=== PATIENT | male | born 1945 | race Caucasian/White ===

== ENCOUNTER 2018-03-30 01:35 | Emergency (ER) | payer MEDICARE, SELFPAY ==
[2018-03-30 01:51] VITALS: BP 127/75; PULSE 66; RESP 15; TEMP 37.3; O2SAT 96; BMI 30.1
--- NOTE | 2018-03-30 02:19 | DI.RAD.S_ITS ---
PROCEDURE: XR CHEST 1V INDICATIONS: cough TECHNIQUE: One view of the chest was acquired. COMPARISON: None. FINDINGS: Surgical changes and devices: Sternotomy wires and CABG clips Lungs and pleura: Lungs are clear. No pleural effusions or pneumothorax. Mediastinum: Mediastinal contours appear normal. Heart size is normal. Bones and chest wall: No suspicious bony lesions. Overlying soft tissues appear unremarkable. IMPRESSION: No acute disease Dictated by: Vincenzo Alva M.D. on 03/30/2018 at 8:07 Approved by: Vincenzo Alva M.D. on 03/30/2018 at 8:08
[2018-03-30] MEDS: ALBUTEROL/IPRATROPIUM 3 ML AMPUL INH (02:27)
[2018-03-30 02:29] VITALS: PULSE 63; RESP 18; O2SAT 94
[2018-03-30 02:52] LABS: Add Manual Diff / Slide Review NO; Basophils Absolute Auto 0 /uL (0-100); Basophils Percent Auto 0.5 % (0-2); Eosinophils Absolute Auto 300 /uL (0-450); Eosinophils Percent Auto 5.1 % (2-4); Hematocrit 45.5 % (41-53); Hemoglobin 15.4 g/dL (13.5-17.5); Lymphocytes Absolute Auto 500 /uL (1100-4500); Mean Corpuscular HGB Conc 33.8 % (30-36); Mean Corpuscular Hemoglobin 30.2 PG (26-34); Mean Corpuscular Volume 89.6 fL (80-100); Monocytes Absolute Auto 1100 /uL (0-900); Monocytes Percent Auto 16.4 % (3-14); Neutrophils Absolute Auto 4600 /uL (1500-7000); Platelet Count 124 X10^3/uL (150-400); Red Blood Cell Count 5.08 X10^6/uL (4.5-5.9); Red Cell Distribution Width 13.6 % (11.6-14.8); White Blood Cell Count 6.6 X10^3/uL (4.5-11.0)
[2018-03-30 03:00] LABS: INR 1.1 (0.9-1.3); Prothrombin Time 12.9 SECONDS (10.1-12.7)
[2018-03-30 03:03] LABS: PTT Partial Thromboplastin Tim 28 SECONDS (26.4-36.2)
[2018-03-30 03:05] LABS: Lactate (Lactic Acid) 1.4 mmol/L (0.7-2.1)
[2018-03-30 03:06] LABS: Alanine Aminotransferase 72 IU/L (21-72); Albumin 4.3 g/dL (3.5-5.0); Albumin Globulin Ratio 1.5 (1.0-2.8); Alkaline Phosphatase 45 U/L (38-126); Aspartate Aminotransferase 54 IU/L (17-59); Blood Urea Nitrogen 26 mg/dL (9-20); Calcium 8.9 mg/dL (8.4-10.2); Carbon Dioxide 24 mmol/L (22-32); Chloride 100 mmol/L (98-107); Creatine Kinase 180 U/L (55-170); Estimated Glomerular Filt Rate > 60.0 mL/min (>60); Globulin 2.8 g/dL (1.7-4.1); Glucose 133 mg/dL (80-110); HEMOLYSIS 19 (0-50); Magnesium 2.1 mg/dL (1.6-2.3); Sodium 137 mmol/L (137-145); Total Protein 7.1 g/dL (6.3-8.2)
[2018-03-30 03:08] LABS: Potassium 5.4 mmol/L (3.4-5.1)
--- NOTE | 2018-03-30 03:13 | ED.DIZZY ---
HPI - Dizziness General Chief Complaint: Dizziness Stated Complaint: Stood up got dizzy fell and hit head EMS sent Time Seen by Provider: 03/30/18 02:06 Source: patient and family Mode of arrival: ambulatory Limitations: no limitations History of Present Illness HPI Narrative: Patient is a 72-year-old male presenting after a near syncopal episode. He says he has been sick the last couple days with upper respiratory like symptoms had a nonproductive cough. No real shortness of breath or chest pain. He has had yesterday was actually worst he was resting lot. Today he felt better when now in did air ins. However this evening he had quite a coughing fit. He stood up he was a little dizzy and bumped his head on a door jam. There was no loss consciousness. He does take aspirin daily for coronary artery disease. He did have some bleeding but it does seem to be controlled. No focal deficits. He now is feeling much better. MD complaint: dizziness and near syncope Related Data Allergies Allergy/AdvReac Type Severity Reaction Status Date / Time No Known Drug Allergies Allergy Verified 03/30/18 01:51 Review of Systems Review of Systems ROS Unobtainable: All systems reviewed & are unremarkable except as noted in HPI and below Constitutional Denies chills, Denies fever(s), Denies lethargy, Denies snoring and Denies weakness Eyes Denies change in vision, Denies eye discharge, Denies irritation and Denies loss of vision Cardiovascular Denies chest pain, Denies irregular heart rhythm, Denies lightheadedness, Denies palpitations, Denies dyspnea, Denies dyspnea on exertion and Denies orthopnea Respiratory Denies change in phlegm color, Denies chest congestion, Reports cough, Denies hemoptysis, Denies excessive phlegm production, Denies pain on inspiration, Denies pain with cough, Denies dyspnea, Denies dyspnea on exertion, Denies snoring, Denies stridor and Denies wheezing Gastrointestinal Gastrointestinal: Denies abdominal pain, Denies change in bowel habits, Denies diarrhea, Denies nausea and Denies vomiting Genitourinary Denies hematuria, Denies flank pain, Denies urinary incontinence and Denies urinary urgency Musculoskeletal Denies back pain, Denies muscle weakness, Denies numbness and Denies tingling Integumentary/Breasts Denies pruritus, Denies erythema, Denies rash and Denies wounds Neurologic Denies loss of vision, Denies numbness, Denies tingling and Denies weakness Endocrine Denies palpitations Allergic/Immunologic Denies wheezing PFSH Medical History Coronary artery disease (Acute) Surgical History Hx of CABG (Acute) Social History Smoking Status: Never smoker alcohol intake: never substance use type: does not use Social History Smoking Status: Never smoker alcohol intake: never substance use type: does not use Exam Initial Vital Signs Initial Vital Signs: Vital Signs Temperature 99.2 F 03/30/18 01:51 Pulse Rate 66 03/30/18 01:51 Respiratory Rate 15 03/30/18 01:51 Blood Pressure 127/75 03/30/18 01:51 Pulse Oximetry 96 03/30/18 01:51 GENERAL: Alert well-appearing elderly gentleman no acute distress HEENT: Head 1 cm superficial laceration left temporal area bleeding control NECK: No vertebral tenderness no step-offs nontender paraspinal muscles full range of motion CARDIOVASCULAR: Regular rate and rhythm without murmurs, rubs or gallops. RESPIRATORY: Breath sounds equal bilaterally, no wheezes rales or rhonchi. ABDOMEN: Soft, nontender. Normoactive bowel sounds all 4 quadrants. No guarding or rebound. EXTREMITIES: Normal range of motion, no clubbing or edema. Neurovascularly intact NEUROLOGICAL: Alert and oriented x4.Normal gait and speech. Cranial nerves II through XII grossly intact. Clinical Nurse Educator strength equal bilaterally SKIN: Warm, dry, no laceration, no petechiae, no rashes or lesions. Course Orders Ordered: ED Orders 03/30/18 01:56 EKG-12 Lead Stat 03/30/18 02:19 Consult to Respiratory Therapy Evaluate & Treat XR chest 1V Stat 03/30/18 02:35 B Type Natriuretic Peptide Stat Complete Blood Count AUTO DIFF Stat Comprehensive Metabolic Panel Stat Lactate (Lactic Acid) Stat Magnesium Stat Partial Thromboplastin Time Stat Procalcitonin Stat Prothrombin Time INR Stat Troponin & CK Cardiac Panel Stat Discontinued Medications Albuterol/Ipratropium (Duoneb) 3 ml INH NOW ONE Stop: 03/30/18 02:19 Last Admin: 03/30/18 02:27 Dose: 3 ml Vital Signs - 8 hr 03/30/18 01:51 03/30/18 02:29 03/30/18 03:39 Temperature 99.2 F 98.2 F Pulse Rate 66 63 69 Respiratory Rate 15 18 18 Blood Pressure 127/75 121/70 Pulse Oximetry 96 94 94 MDM - Dizziness Lab Data Attestation: I reviewed the patient's lab results. Result diagrams: 03/30/18 02:35 03/30/18 02:35 Lab Results 03/30/18 03/30/18 03/30/18 Range/Units 02:35 02:35 02:35 WBC 6.6 (4.5-11.0) X10^3/uL RBC 5.08 (4.5-5.9) X10^6/uL Hgb 15.4 (13.5-17.5) g/dL Hct 45.5 (41-53) % MCV 89.6 (80-100) fL MCH 30.2 (26-34) PG MCHC 33.8 (30-36) % RDW 13.6 (11.6-14.8) % Plt Count 124 L (150-400) X10^3/uL Neut % (Auto) 70.0 (50-75) % Lymph % (Auto) 8.0 L (25-40) % Duchesne % (Auto) 16.4 H (3-14) % Eos % (Auto) 5.1 H (2-4) % Baso % (Auto) 0.5 (0-2) % Neut # (Auto) 4600 (2982-4742) /uL Lymph # (Auto) 500 L (2323-5975) /uL Duchesne # (Auto) 1100 H (0-900) /uL Eos # (Auto) 300 (0-450) /uL Baso # (Auto) 0 (0-100) /uL PT 12.9 H (10.1-12.7) SECONDS INR 1.1 (0.9-1.3) APTT 28 (26.4-36.2) SECONDS Sodium 137 (137-145) mmol/L Potassium 5.4 H (3.4-5.1) mmol/L Chloride 100 (98-107) mmol/L Carbon Dioxide 24 (22-32) mmol/L BUN 26 H (9-20) mg/dL Creatinine 1.00 (0.66-1.25) mg/dL Estimated GFR > 60.0 (>60) mL/min BUN/Creatinine Ratio 26.0 H (6-22) Glucose 133 H (80-110) mg/dL Lactate (0.7-2.1) mmol/L Calcium 8.9 (8.4-10.2) mg/dL Magnesium 2.1 (1.6-2.3) mg/dL Total Bilirubin 1.0 (0.2-1.3) mg/dL AST 54 (17-59) IU/L ALT 72 (21-72) IU/L Alkaline Phosphatase 45 (38-126) U/L Total Creatine Kinase 180 H (55-170) U/L CK-MB (CK-2) 0.94 (<2.37) ng/mL CK-MB (CK-2) Rel Index 0.5 L (1.5-5.0) % Troponin I < 0.012 (0.01-0.034) ng/mL B-Natriuretic Peptide < 100 (<100) Total Protein 7.1 (6.3-8.2) g/dL Albumin 4.3 (3.5-5.0) g/dL Globulin 2.8 (1.7-4.1) g/dL Albumin/Globulin Ratio 1.5 (1.0-2.8) Procalcitonin (<0.5) ng/mL 03/30/18 03/30/18 Range/Units 02:35 02:35 WBC (4.5-11.0) X10^3/uL RBC (4.5-5.9) X10^6/uL Hgb (13.5-17.5) g/dL Hct (41-53) % MCV (80-100) fL MCH (26-34) PG MCHC (30-36) % RDW (11.6-14.8) % Plt Count (150-400) X10^3/uL Neut % (Auto) (50-75) % Lymph % (Auto) (25-40) % Duchesne % (Auto) (3-14) % Eos % (Auto) (2-4) % Baso % (Auto) (0-2) % Neut # (Auto) (0948-5693) /uL Lymph # (Auto) (6188-5260) /uL Duchesne # (Auto) (0-900) /uL Eos # (Auto) (0-450) /uL Baso # (Auto) (0-100) /uL PT (10.1-12.7) SECONDS INR (0.9-1.3) APTT (26.4-36.2) SECONDS Sodium (137-145) mmol/L Potassium (3.4-5.1) mmol/L Chloride (98-107) mmol/L Carbon Dioxide (22-32) mmol/L BUN (9-20) mg/dL Creatinine (0.66-1.25) mg/dL Estimated GFR (>60) mL/min BUN/Creatinine Ratio (6-22) Glucose (80-110) mg/dL Lactate 1.4 (0.7-2.1) mmol/L Calcium (8.4-10.2) mg/dL Magnesium (1.6-2.3) mg/dL Total Bilirubin (0.2-1.3) mg/dL AST (17-59) IU/L ALT (21-72) IU/L Alkaline Phosphatase (38-126) U/L Total Creatine Kinase (55-170) U/L CK-MB (CK-2) (<2.37) ng/mL CK-MB (CK-2) Rel Index (1.5-5.0) % Troponin I (0.01-0.034) ng/mL B-Natriuretic Peptide (<100) Total Protein (6.3-8.2) g/dL Albumin (3.5-5.0) g/dL Globulin (1.7-4.1) g/dL Albumin/Globulin Ratio (1.0-2.8) Procalcitonin 0.14 (<0.5) ng/mL Imaging Data Chest x-ray: Attestation: I personally reviewed and interpreted this imaging study as follows: ECG Data Attestation: I personally reviewed and interpreted this ECG as follows: Prior ECG tracings: available for review Interpretation: Normal sinus rhythm rate [address] changes or T-wave inversions his MN interval to 17 similar to previous EKG MDM Narrative Medical decision making narrative: Patient's dizziness is likely related to coughing episode. He did receive a DuoNeb here in the ED he did notice much change. His blood work reassuring no pneumonia on x-ray. Patient feels better ready and able to go home. Discharge Plan Departure Patient Disposition: Home Clinical Impression: Bronchitis, Near syncope Laceration of head Qualifiers: Encounter type: initial encounter Location of open wound of head: scalp Foreign body presence: without foreign body Qualified Code(s): S01.01XA - Laceration without foreign body of scalp, initial encounter Discharge Date/Time: 03/30/18 03:39 Interventions: ED Discharge Assessment Last Done: 03/30/18 03:39 Instructions: Fainting, Acute Bronchitis Activity Restrictions/Additional Instructions: *You have been diagnosed with bronchitis, fainting episode, head laceration *What to do: Likely have bronchitis no indication for antibiotics at this time. Fainting episode is likely some coughing spell from bronchitis. The keep head laceration clean and dry with soap and water anticipate healing with a problem. *Continue to take medications as directed *Follow up with your primary care provider in 2-3 days *Return to ER if you should have increased chest pain, shortness of breath, passing out, redness, pus or swelling from laceration or any new, worsening or concerning symptoms Referrals: Azael Rosario MD [Primary Care Provider] -
[2018-03-30 03:15] LABS: B Type Natriuretic Peptide < 100 (<100)
[2018-03-30 03:21] LABS: CKMB % Relative Index 0.5 % (1.5-5.0); Creatine Kinase MB 0.94 ng/mL (<2.37); Procalcitonin 0.14 ng/mL (<0.5); Troponin I < 0.012 ng/mL (0.01-0.034)
[2018-03-30 03:39] VITALS: BP 121/70; PULSE 69; RESP 18; TEMP 36.8; O2SAT 94
== END 2018-03-30 03:39 | disposition home or self-care (01) ==
PROVIDERS: Emergency Provider Emergency Medicine; PCP Internal Medicine
DX: S01.01XA Laceration without foreign body of scalp, initial encounter (principal); W22.8XXA Striking against or struck by other objects, initial encounter
CPT/HCPCS: 36591; 71045; 80053; 82550; 82553; 83605; 83735; 83880; 84145; 84484; 85025; 85610; 85730; 93005; 94640; 99283; 99285

== ENCOUNTER → 2018-04-09 10:30 | Outpatient (CLI) | payer MEDICARE, SELFPAY ==
--- NOTE | 2018-04-09 | DI.US.S_ITS ---
PROCEDURE: US ABD AORTA ANEURYSM SCREEN INDICATIONS: SCREENING TECHNIQUE: Real time scanning was performed of the aorta and iliac arteries, with image documentation. COMPARISON: None. FINDINGS: Aorta: Proximal aortic is not seen, secondary to overlying bowel gas. Mid-aorta measures 1.9 cm. Distal aortic diameter is 1.7 cm. Iliac arteries: Right common iliac artery measures 1 cm. Left common iliac artery measures 1.2 cm. IMPRESSION: Negative for aneurysm. Dictated by: Sam Perez M.D. on 04/09/2018 at 10:51 Approved by: Sam Perez M.D. on 04/09/2018 at 10:52
== END ==
PROVIDERS: PCP Internal Medicine; Visit Provider Internal Medicine
DX: Z13.6 Encounter for screening for cardiovascular disorders (principal)
CPT/HCPCS: 76706

== ENCOUNTER → 2018-06-25 09:47 | Outpatient (CLI) | payer MEDICARE, SELFPAY ==
[2018-06-25 10:25] LABS: Add Manual Diff / Slide Review NO; Basophils Absolute Auto 100 /uL (0-100); Basophils Percent Auto 0.7 % (0-2); Eosinophils Absolute Auto 300 /uL (0-450); Eosinophils Percent Auto 3.3 % (2-4); Hematocrit 46.2 % (41-53); Hemoglobin 15.3 g/dL (13.5-17.5); Lymphocytes Absolute Auto 1500 /uL (1100-4500); Lymphocytes Percent Auto 19.9 % (25-40); Mean Corpuscular HGB Conc 33.1 % (30-36); Mean Corpuscular Hemoglobin 29.7 PG (26-34); Mean Corpuscular Volume 89.8 fL (80-100); Monocytes Absolute Auto 700 /uL (0-900); Monocytes Percent Auto 9.2 % (3-14); Neutrophils Absolute Auto 5100 /uL (1500-7000); Neutrophils Percent Auto 66.9 % (50-75); Platelet Count 195 X10^3/uL (150-400); Red Blood Cell Count 5.15 X10^6/uL (4.5-5.9); White Blood Cell Count 7.6 X10^3/uL (4.5-11.0)
[2018-06-25 10:38] LABS: Alanine Aminotransferase 53 IU/L (21-72); Albumin 4.1 g/dL (3.5-5.0); Albumin Globulin Ratio 1.5 (1.0-2.8); Alkaline Phosphatase 51 U/L (38-126); Aspartate Aminotransferase 40 IU/L (17-59); Bilirubin Total 1.1 mg/dL (0.2-1.3); Blood Urea Nitrogen 20 mg/dL (9-20); Calcium 9.4 mg/dL (8.4-10.2); Carbon Dioxide 24 mmol/L (22-32); Chloride 105 mmol/L (98-107); Cholesterol 116 mg/dL (140-199); Estimated Glomerular Filt Rate > 60.0 mL/min (>60); Globulin 2.7 g/dL (1.7-4.1); Glucose 115 mg/dL (80-110); HDL Cholesterol 52 mg/dL (40-60); HEMOLYSIS 16 (0-50); LDL Cholesterol Calculated 47 mg/dL (<100); Potassium 4.5 mmol/L (3.4-5.1); Sodium 138 mmol/L (137-145); Total Protein 6.8 g/dL (6.3-8.2); Triglycerides 83 mg/dL (35-150)
[2018-07-04 10:00] LABS: PSA Post Prostatectomy <0.02 ng/mL
== END ==
PROVIDERS: PCP Internal Medicine; Visit Provider Internal Medicine
DX: I10 Essential (primary) hypertension (principal); I25.10 Atherosclerotic heart disease of native coronary artery without angina pectoris; Z85.46 Personal history of malignant neoplasm of prostate
CPT/HCPCS: 36415; 80053; 80061; 84153; 85025

== ENCOUNTER → 2019-07-08 07:13 | Outpatient (CLI) | payer MEDICARE, SELFPAY ==
[2019-07-08 08:52] LABS: Alanine Aminotransferase 74 IU/L (<50); Albumin 4.1 g/dL (3.5-5.0); Albumin Globulin Ratio 1.5 (1.0-2.8); Alkaline Phosphatase 58 U/L (38-126); Aspartate Aminotransferase 53 IU/L (17-59); BUN Creatinine Ratio 18.9 (6-22); Bilirubin Total 1.5 mg/dL (0.2-1.3); Blood Urea Nitrogen 17 mg/dL (9-20); Calcium 9.7 mg/dL (8.4-10.2); Carbon Dioxide 27 mmol/L (22-32); Chloride 101 mmol/L (98-107); Cholesterol 114 mg/dL (140-199); Estimated Glomerular Filt Rate > 60.0 mL/min (>60); Globulin 2.8 g/dL (1.7-4.1); Glucose 124 mg/dL (80-110); HDL Cholesterol 52 mg/dL (40-60); HEMOLYSIS 20 (0-50); LDL Cholesterol Calculated 41 mg/dL (<100); Potassium 4.9 mmol/L (3.4-5.1); Sodium 136 mmol/L (137-145); Total Protein 6.9 g/dL (6.3-8.2); Triglycerides 103 mg/dL (35-150)
[2019-07-08 23:30] LABS: PSA Ultrasensitive <0.014 ng/mL (0.000-4.000)
== END ==
PROVIDERS: PCP Internal Medicine; Referring Provider Internal Medicine; Visit Provider Internal Medicine
DX: E78.2 Mixed hyperlipidemia (principal); I25.10 Atherosclerotic heart disease of native coronary artery without angina pectoris; I10 Essential (primary) hypertension; R73.09 Other abnormal glucose
CPT/HCPCS: 36415; 80053; 80061; 84153

== ENCOUNTER → 2019-10-22 07:20 | Outpatient (CLI) | payer MEDICARE, SELFPAY ==
[2019-10-22 08:51] LABS: Alanine Aminotransferase 40 IU/L (<50); Albumin 4.3 g/dL (3.5-5.0); Albumin Globulin Ratio 1.7 (1.0-2.8); Alkaline Phosphatase 61 U/L (38-126); Aspartate Aminotransferase 34 IU/L (17-59); BUN Creatinine Ratio 24.4 (6-22); Bilirubin Total 1.3 mg/dL (0.2-1.3); Blood Urea Nitrogen 22 mg/dL (9-20); Calcium 9.7 mg/dL (8.4-10.2); Carbon Dioxide 26 mmol/L (22-32); Chloride 103 mmol/L (98-107); Estimated Glomerular Filt Rate > 60.0 mL/min (>60); Globulin 2.6 g/dL (1.7-4.1); Glucose 119 mg/dL (80-110); HEMOLYSIS < 15 (0-50); Potassium 4.8 mmol/L (3.4-5.1); Sodium 136 mmol/L (137-145); Total Protein 6.9 g/dL (6.3-8.2)
== END ==
PROVIDERS: PCP Internal Medicine; Referring Provider Internal Medicine; Visit Provider Internal Medicine
DX: Z00.00 Encounter for general adult medical examination without abnormal findings (principal); R74.8 Abnormal levels of other serum enzymes
CPT/HCPCS: 36415; 80053

== ENCOUNTER → 2020-04-30 18:23 | Outpatient (ROUT) | payer MEDICARE, SELFPAY ==
[2020-04-30 18:42] LABS: Alanine Aminotransferase 56 IU/L (<50); Albumin 4.1 g/dL (3.5-5.0); Albumin Globulin Ratio 1.6 (1.0-2.8); Alkaline Phosphatase 59 U/L (38-126); Aspartate Aminotransferase 41 IU/L (17-59); BUN Creatinine Ratio 19.4 (6-22); Blood Urea Nitrogen 18 mg/dL (9-20); Calcium 9.6 mg/dL (8.4-10.2); Carbon Dioxide 28 mmol/L (22-32); Chloride 105 mmol/L (98-107); Estimated Glomerular Filt Rate > 60.0 mL/min (>60); Globulin 2.5 g/dL (1.7-4.1); Glucose 112 mg/dL (80-110); HEMOLYSIS < 15 (0-50); Potassium 4.2 mmol/L (3.4-5.1); Sodium 138 mmol/L (137-145); Total Protein 6.6 g/dL (6.3-8.2)
== END ==
PROVIDERS: PCP Internal Medicine; Visit Provider Internal Medicine
DX: I10 Essential (primary) hypertension (principal); R74.8 Abnormal levels of other serum enzymes
CPT/HCPCS: 80053

== ENCOUNTER → 2020-10-23 07:55 | Outpatient (CLI) | payer MEDICARE, SELFPAY ==
[2020-10-23 09:09] LABS: Alanine Aminotransferase 45 IU/L (<50); Albumin 4.4 g/dL (3.5-5.0); Albumin Globulin Ratio 1.8 (1.0-2.8); Alkaline Phosphatase 55 U/L (38-126); Aspartate Aminotransferase 39 IU/L (17-59); BUN Creatinine Ratio 26.4 (6-22); Bilirubin Total 1.7 mg/dL (0.2-1.3); Blood Urea Nitrogen 23 mg/dL (9-20); Calcium 9.5 mg/dL (8.4-10.2); Carbon Dioxide 26 mmol/L (22-32); Chloride 103 mmol/L (98-107); Cholesterol 113 mg/dL (140-199); Estimated Glomerular Filt Rate > 60.0 mL/min (>60); Globulin 2.4 g/dL (1.7-4.1); Glucose 118 mg/dL (80-110); HDL Cholesterol 58 mg/dL (40-60); HEMOLYSIS < 15 (0-50); LDL Cholesterol Calculated 40 mg/dL (<100); Potassium 4.6 mmol/L (3.4-5.1); Sodium 136 mmol/L (137-145); Total Protein 6.8 g/dL (6.3-8.2); Triglycerides 74 mg/dL (35-150)
== END ==
PROVIDERS: PCP Internal Medicine; Referring Provider Internal Medicine; Visit Provider Internal Medicine
DX: I10 Essential (primary) hypertension (principal); R73.09 Other abnormal glucose; E78.2 Mixed hyperlipidemia; R74.8 Abnormal levels of other serum enzymes
CPT/HCPCS: 36415; 80053; 80061; 83036

== ENCOUNTER → 2021-03-17 07:44 | Outpatient (CLI) | payer MEDICARE, SELFPAY ==
--- NOTE | 2021-03-17 | DI.ECHO.S_ITS ---
[facility]---------+ [facility] +---------+ : : [address] : : : : [id number] : : : : Phone: [phone] Echocardiogram Report + + :Name: ROBERTA MARROQUIN Study Date: 03/17/2021 Height: 70.5 in: :[facility] ReadingLocation: Weight: 210 lb : : Gender: Male BSA: 2.1 m2 : :: 1945 Age: 75 yrs BP: 140/82 mmHg: :Reason For Study: SYNCOPE AND COLLAPSE : :Ordering Physician: YANET, : :ARMINDA Performed By: Dafne Ch : :Referring: ARMINDA HOLT : + + Interpretation Summary The patient was in sinus bradycardia with heart rates between 47-55 bpm during the exam. The left ventricle is normal in size and wall thickness. Left ventricular ejection fraction is estimated to be 55 +/- 5%. The right ventricle is normal in size and function. There is mild tricuspid regurgitation. Right ventricular systolic pressure is estimated to be 25 mmHg plus the clinically estimated CVP which cannot be estimated on this exam. The aortic root is mildly dilated. The ascending aorta is mildly enlarged. Procedure: A two-dimensional transthoracic echocardiogram with color flow and Doppler was performed. The study quality was technically adequate. There is no prior echocardiogram noted for this patient. The patient was in sinus bradycardia with heart rates between 47-55 bpm during the exam. Left Ventricle: The left ventricle is normal in size and wall thickness. There is no thrombus. Left ventricular ejection fraction is estimated to be 55 +/- 5%. There are no focal wall motion abnormalities. Diastolic parameters suggest a relaxation abnormality of the left ventricle, consistent with probable normal filling pressures. Right Ventricle: The right ventricle is normal in size and function. Atria: The left atrial size is normal. Right atrial size is normal. There is no Doppler evidence for an interatrial shunt. Mitral Valve: There is mild mitral annular calcification. There is trace mitral regurgitation. Aortic Valve: The aortic valve is trileaflet. There is discrete nodular thickening of the right coronary cusp. The aortic valve is mildly calcified. There is no aortic valve stenosis. No aortic regurgitation is present. Tricuspid Valve: Fatty tricuspid annulus. There is mild tricuspid regurgitation. Right ventricular systolic pressure is estimated to be 25 mmHg plus the clinically estimated CVP which cannot be estimated on this exam. Pulmonic Valve: The pulmonic valve leaflets are thin and pliable; valve motion is normal. There is trace pulmonic regurgitation. Great Vessels: The aortic root is mildly dilated. The ascending aorta is mildly enlarged. The inferior vena cava was not well visualized. Pericardium/ Pleura There is no pericardial effusion. There is an anterior echo-free space consistent with a fat pad. There is no pleural effusion. MMode/2D Measurements & Calculations LVIDd: 4.8 cm LVOT diam: 2.1 cm LVIDs: 3.4 cm Ao root diam: 4.1 cm FS: 29.0 % asc Aorta Diam: 4.0 cm IVSd: 0.71 cm LVPWd: 0.72 cm LV knapp. diameter/BSA (cm/m^2): 2.2 LV sys. diameter/BSA (cm/m^2): 1.6 LA A2 area: 22.2 cm2 RA long axis: 5.2 cm LA A4 area: 18.0 cm2 RA area: 16.5 cm2 LA length (vol): 5.9 cm RA vol: 45.0 ml LA vol: 57.4 ml RA : 21.0 ml/m2 LA vol index: 26.8 ml/m2 RVD1 (basal): 3.4 cm TAPSE: 1.9 cm Doppler Measurements & Calculations Ao V2 max: 132.5 cm/sec LVOT Max Lenoard: 70.3 cm/sec Ao V2 mean: 87.2 cm/sec LV V1 max P.0 mmHg Ao max P.0 mmHg LV V1 VTI: 16.1 cm Ao mean P.4 mmHg LG(I,D): 2.0 cm2 Ao V2 VTI: 26.9 cm LG(V,D): 1.8 cm2 sev ratio: 0.60 LG indexed to BSA (cm^2/m^2): 0.94 MV E max leonard: 62.0 cm/sec TR max leonard: 249.4 cm/sec MV A max leonard: 74.5 cm/sec TR max P.9 mmHg MV E/A: 0.83 PA V2 max: 110.5 cm/sec Med Peak E' Leonard: 6.1 cm/sec PA V2 mean: 75.2 cm/sec E/E' med: 10.2 PA mean P.5 mmHg Lat Peak E' Leonard: 8.2 cm/sec PA pr(Accel): 32.8 mmHg E/E' lat: 7.5 E/e' average: 8.8 MV dec time: 0.22 sec SV(LVOT): 54.4 ml Reading Physician:02:40 PM
== END ==
PROVIDERS: PCP Internal Medicine; Referring Provider Internal Medicine; Visit Provider Internal Medicine
DX: I07.1 Rheumatic tricuspid insufficiency (principal); I77.810 Thoracic aortic ectasia; R55 Syncope and collapse
CPT/HCPCS: 93306

== ENCOUNTER → 2021-06-10 07:53 | Outpatient (CLI) | payer MEDICARE, SELFPAY ==
--- NOTE | 2021-06-10 07:55 | DI.US.S_ITS ---
PROCEDURE: US ABDOMEN LIMITED INDICATIONS: ELEVATED LIVER ENZYMES TECHNIQUE: Real-time focused scanning was performed of the abdomen, with image documentation. COMPARISON: None. FINDINGS: The liver demonstrates normal size. The liver demonstrates generalized moderate to severe increased echogenicity. This decreases ultrasound sensitivity for detection of hepatic masses. No findings of gallstones or sludge are seen. The gallbladder wall is not thickened, measuring 3 mm or less. No specific pericholecystic fluid is seen. The sonographic Ying sign is negative. There is no biliary dilatation, the common bile duct measures 4 mm. No significant pancreatic abnormality is seen on these images. IMPRESSION: Moderate to severe fatty liver infiltration can be seen. Dictated by: Sam Perez M.D. on 06/10/2021 at 11:11 Approved by: Sam Perez M.D. on 06/10/2021 at 11:12
== END ==
PROVIDERS: PCP Internal Medicine; Referring Provider Internal Medicine; Visit Provider Internal Medicine
DX: K76.0 Fatty (change of) liver, not elsewhere classified (principal); R74.8 Abnormal levels of other serum enzymes
CPT/HCPCS: 76705

== ENCOUNTER → 2022-04-20 11:05 | Outpatient (ROUT) | payer MEDICARE, SELFPAY ==
[2022-04-20 11:55] LABS: Troponin I 0.779 ng/mL (0.01-0.034)
== END ==
PROVIDERS: Visit Provider Physician Assistant
DX: R07.89 Other chest pain (principal); Z95.1 Presence of aortocoronary bypass graft
CPT/HCPCS: 84484

== ENCOUNTER → 2023-05-26 09:55 | Outpatient (CLI) | payer MEDICARE, SELFPAY ==
--- NOTE | 2023-05-26 | DI.RAD.S_ITS ---
PROCEDURE: XR LUMBAR SPINE 2-3V INDICATIONS: LOW BACK PAIN TECHNIQUE: 3 views of the lumbar spine were acquired. COMPARISON: None. FINDINGS: Bones: 5 [id number] vertebrae are present. Grade 1 anterolisthesis of L4 on L5, presumably due to facet arthrosis. Moderate disc height loss at all levels. Facet arthrosis L3 through S1. Soft tissues: Overlying bowel gas pattern is normal. No suspicious soft tissue calcifications. Surgical clips along the pelvic sidewall. 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 Dictated by: Edgar Quintanilla M.D. on 05/26/2023 at 10:36 Approved by: Edgar Quintanilla M.D. on 05/26/2023 at 10:37
== END ==
LOC: RAD 09:58
PROVIDERS: PCP Physician Assistant; Referring Provider Student in an Organized Health Care Education/Training Program; Visit Provider Student in an Organized Health Care Education/Training Program
DX: M51.16 Intervertebral disc disorders with radiculopathy, lumbar region (principal); M51.17 Intervertebral disc disorders with radiculopathy, lumbosacral region; M47.26 Other spondylosis with radiculopathy, lumbar region; M47.27 Other spondylosis with radiculopathy, lumbosacral region
CPT/HCPCS: 72100

== ENCOUNTER 2024-08-24 15:42 | Emergency (ER) | payer MEDICARE, SELFPAY ==
[2024-08-24] VITALS (14 sets, daily range): BP systolic 145–208; BP diastolic 66–111; PULSE 47–60; RESP 14–19; TEMP 36.8; O2SAT 95–99; BMI 29.4
--- NOTE | 2024-08-24 18:36 | ED.BACK ---
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 Pain seems to be intermittent, not particularly worse with movements or twisting. Not worse with deep breathing. No diaphoresis. No sensation of shortness of breath. No fevers or chills. No dysuria or frequency of urination. No known history of urinary tract infections of kidney stones. No recent cough or shortness of breath. Denies chest pain. No skin rash/vesicles. Related Data Previous Rx's ?Medication ?Instructions ?Recorded methocarbamol 500 mg tablet 500 mg PO TID 7 days #21 tabs 08/24/24 Allergies Allergy/AdvReac Type Severity Reaction Status Date / Time No Known Drug Allergies Allergy Verified 08/24/24 15:51 Patient History Medical History (Updated 08/24/24 @ 21:54 by Shawn Sinha MD) Coronary artery disease Surgical History (Updated 03/30/18 @ 03:21 by Naa Pineda DO) Hx of CABG Social History (Updated 03/30/18 @ 03:21 by Naa Pineda DO) Smoking Status: Former smoker alcohol intake: never substance use type: does not use Smoking Status: Former smoker Exam Narrative Exam Narrative: GENERAL: Well-developed patient, in mild distress. HEAD: Atraumatic. Normocephalic. EYES: Pupils equal round and reactive. Extraocular motions intact. No scleral icterus. No injection or drainage. ENT: Nose without bleeding, purulent drainage. Throat without erythema, tonsillar hypertrophy or exudate. Airway patent. NECK: Trachea midline. Non tender CARDIOVASCULAR: Regular rate and rhythm without murmurs, gallops, or rubs. RESPIRATORY: Clear to auscultation. Breath sounds equal bilaterally. No wheezes, rales, or rhonchi. GASTROINTESTINAL: Abdomen soft, non-tender, nondistended. EXTREMITIES: No edema or joint tenderness. BACK: Nontender without deformity or crepitance. No flank tenderness. NEURO: AOx3. Motor functions grossly nonfocal. SKIN: No rash or erythema of visible areas. No skin rashes/vesicle changes truncal or otherwise in visible skin areas. Initial Vital Signs Initial Vital Signs: Vital Signs Temperature 98.2 F 08/24/24 15:51 Pulse Rate 60 08/24/24 15:51 Respiratory Rate 16 08/24/24 15:51 Blood Pressure 208/111 H 08/24/24 15:51 Pulse Oximetry 95 08/24/24 15:51 Oxygen Delivery Method Room Air 08/24/24 15:51 Course Orders Ordered: Discontinued Medications Methocarbamol (Methocarbamol 500 Mg Tablet) 500 mg PO NOW ONE Stop: 08/24/24 21:50 Last Admin: 08/24/24 21:51 Dose: 500 mg Documented By: ALTAGRACIA Vital Signs Vital signs: Vital Signs - 8 hr 08/24/24 15:51 08/24/24 18:00 08/24/24 18:01 Temperature 98.2 F Pulse Rate 60 57 L Respiratory Rate 16 Blood Pressure 208/111 H 180/80 H Pulse Oximetry 95 97 Oxygen Delivery Method Room Air 08/24/24 18:01 08/24/24 18:30 08/24/24 18:31 Temperature Pulse Rate 54 L 53 L Respiratory Rate Blood Pressure 145/66 H Pulse Oximetry 98 97 Oxygen Delivery Method 08/24/24 18:31 08/24/24 19:00 08/24/24 19:30 Temperature Pulse Rate 53 L 59 L 54 L Respiratory Rate Blood Pressure Pulse Oximetry 97 98 96 Oxygen Delivery Method 08/24/24 19:32 08/24/24 19:32 08/24/24 20:00 Temperature Pulse Rate 50 L Respiratory Rate Blood Pressure 176/82 H 149/85 H Pulse Oximetry 98 Oxygen Delivery Method 08/24/24 20:00 08/24/24 20:30 08/24/24 20:31 Temperature Pulse Rate 47 L 50 L Respiratory Rate 14 19 Blood Pressure 158/78 H Pulse Oximetry 99 96 Oxygen Delivery Method 08/24/24 20:31 08/24/24 21:00 08/24/24 21:28 Temperature Pulse Rate 48 L 54 L Respiratory Rate 18 17 Blood Pressure 176/80 H Pulse Oximetry 97 98 Oxygen Delivery Method 08/24/24 21:28 08/24/24 21:30 08/24/24 21:30 Temperature Pulse Rate 48 L 50 L Respiratory Rate 14 17 Blood Pressure 163/77 H Pulse Oximetry 97 97 Oxygen Delivery Method MDM - Back Pain/Injury Lab Data Attestation: I reviewed the patient's lab results. Lab results narrative: White blood cell count 6000, hemoglobin 14.7, platelets adequate. Renal function normal. Sodium 135 slight decreased, potassium normal. Serum CO2 normal. Glucose 99 normal. ALT slight elevation, other liver functions normal. Lipase normal. Urinalysis negative. 08/24/24 19:37 08/24/24 19:37 Labs: Lab Results 08/24/24 08/24/24 Range/Units 19:37 19:40 WBC 6.0 (4.5-11.0) X10^3/uL RBC 4.63 (4.5-5.9) X10^6/uL Hgb 14.7 (13.5-17.5) g/dL Hct 43.2 (41-53) % MCV 93.3 (80-100) fL MCH 31.8 (26-34) PG MCHC 34.1 (30-36) % RDW 14.0 (11.6-14.8) % Plt Count 130 L (150-400) X10^3/uL Neut % (Auto) 66.2 (50-75) % Lymph % (Auto) 19.4 L (25-40) % Grainger % (Auto) 9.3 (3-14) % Eos % (Auto) 4.7 H (2-4) % Baso % (Auto) 0.4 (0-2) % Neut # (Auto) 3900 (7690-9565) /uL Lymph # (Auto) 1200 (5750-7250) /uL Grainger # (Auto) 600 (0-900) /uL Eos # (Auto) 300 (0-450) /uL Baso # (Auto) 0 (0-100) /uL Sodium 135 L (137-145) mmol/L Potassium 4.3 (3.4-5.1) mmol/L Chloride 104 (98-107) mmol/L Carbon Dioxide 26 (22-32) mmol/L BUN 22 H (9-20) mg/dL Creatinine 0.80 (0.66-1.25) mg/dL Estimated GFR > 60 (>60) mL/min BUN/Creatinine Ratio 27.5 H (6-22) Glucose 99 (70-99) mg/dL Calcium 9.2 (8.4-10.2) mg/dL Total Bilirubin 1.3 (0.2-1.3) mg/dL AST 53 (17-59) IU/L ALT 71 H (<50) IU/L Alkaline Phosphatase 69 (38-126) U/L Total Protein 6.7 (6.3-8.2) g/dL Albumin 4.1 (3.5-5.0) g/dL Globulin 2.6 (1.7-4.1) g/dL Albumin/Globulin Ratio 1.6 (1.0-2.8) Lipase 135 (23-300) U/L Urine Color Yellow Urine Appearance Clear Urine pH 6.0 (4.5-8.0) Ur Specific [place] 1.025 (1.000-1.035) Urine Protein Negative (Negative) Urine Glucose (UA) Negative (Negative) g/dL Urine Ketones Negative (NEGATIVE) Urine Occult Blood Negative (Negative) Urine Nitrate Negative (Negative) Urine Bilirubin Negative (NEGATIVE) Urine Urobilinogen >=8.0 (0.2) E.U./dL Ur Leukocyte Esterase Negative (NEGATIVE) Urine RBC 0-1/hpf (0-5/HPF) Urine WBC 0-1/hpf (0-5/HPF) Ur Squamous Epith Cells 0-1 /hpf (0-5/HPF) Urine Bacteria Occasional (0-1) (None) Ur Culture Indicated? Cult not indicated Vol Urine Centrifuged 10ml (spun) MDM Narrative Medical decision making narrative: 78-year-old with right-sided flank pain, no history of kidney stones, afebrile, has been taking a leave for left-sided musculoskeletal problem, that was not relieving his right flank symptoms. No tenderness on exam flank or abdomen. Labs pending. DDX consider ureteral stone, UTI, colitis, diverticulitis, musculoskeletal, other. Lab data: White blood cell count 6000, hemoglobin 14.7, platelets adequate. Renal function normal. Sodium 135 slight decreased, potassium normal. Serum CO2 normal. Glucose 99 normal. ALT slight elevation, other liver functions normal. Lipase normal. Urinalysis negative. Discussed advanced imaging, unclear diagnosis, he would like to proceed. Renal function adequate, CT abdomen and pelvis with IV contrast ordered. CT abdomen and pelvis with IV contrast. IMPRESSION: No hydronephrosis or nephrolithiasis. Moderate right-sided testicular hydrocele.Multilevel degenerative disc disease and facet arthrosis. As result, there is moderate spinal canal narrowing at L3-4. Moderate to severe hepatic steatosis.. See radiology report. Copy of CT report provided to patient/family with explanation. Could be musculoskeletal cause of discomfort. Consider course muscle relaxant, patient seems interested. Oral dose Robaxin/methocarbamol given, prescription sent to pharmacy. Discharged home with family. Precautions discussed. Discharge Plan Departure Patient Disposition: Home Clinical Impression: Right flank pain, Hydrocele, right Instructions: DI for Hydrocele-Adult Activity Restrictions/Additional Instructions: Right flank pain of unclear cause, history of left-sided sciatica for which you had been taking Aleve, which is not helping the intermittent recent right-sided flank pain. No chest discomfort or shortness of breath. No painful urination or frequency of urination. Labs unremarkable, urinalysis negative. CT abdomen and pelvis imaging was done, shows no kidney stones or acute changes. Incidental right testicular hydrocele happened to be found, not likely related to your current discomfort symptoms. No bowel obstruction or acute abdominopelvic process identified. There was some arthritic change in the spine at L3-L4. It is possible you have some compression or irritation to the nerves related to your current pain. Consider muscular strain. Trial of muscle relaxant. First dose Robaxin/methocarbamol given, prescription given for further methocarbamol to your pharmacy. Recheck early next week with your regular provider. Further workup as an outpatient for now. Prescriptions: New methocarbamol 500 mg tablet 500 mg PO TID 7 Days Qty: 21 0RF Referrals: Bri Humphreys PA-C [Primary Care Provider, Medical] Stand Alone Forms: Patient Portal/API
[2024-08-24 19:51] LABS: Add Manual Diff / Slide Review NO; Hematocrit 43.2 % (41-53); Hemoglobin 14.7 g/dL (13.5-17.5); Lymphocytes Absolute Auto 1200 /uL (1100-4500); Mean Corpuscular HGB Conc 34.1 % (30-36); Mean Corpuscular Hemoglobin 31.8 PG (26-34); Mean Corpuscular Volume 93.3 fL (80-100); Platelet Count 130 X10^3/uL (150-400)
[2024-08-24 20:00] LABS: Appearance Urine UA CLEAR; Bilirubin Urine UA NEGATIVE (NEGATIVE); Color Urine UA YELLOW; Glucose Urine UA NEGATIVE (Negative); Ketones Urine UA NEGATIVE (NEGATIVE); Leukocyte Esterase Urine UA NEGATIVE (NEGATIVE); Nitrite Urine UA NEGATIVE (Negative); Occult Blood Urine UA NEGATIVE (Negative); Protein Urine UA NEGATIVE (Negative); Specific Gravity Urine UA 1.025 (1.000-1.035); Urobilinogen Urine UA >=8.0 E.U./dL (0.2); pH Urine UA 6.0 (4.5-8.0)
[2024-08-24 20:06] LABS: Alanine Aminotransferase 71 IU/L (<50); Albumin 4.1 g/dL (3.5-5.0); Albumin Globulin Ratio 1.6 (1.0-2.8); Alkaline Phosphatase 69 U/L (38-126); Blood Urea Nitrogen 22 mg/dL (9-20); Calcium 9.2 mg/dL (8.4-10.2); Carbon Dioxide 26 mmol/L (22-32); Chloride 104 mmol/L (98-107); Estimated Glomerular Filt Rate > 60 mL/min (>60); Globulin 2.6 g/dL (1.7-4.1); Glucose 99 mg/dL (70-99); HEMOLYSIS < 15 (0-50); Lipase 135 U/L (23-300); Potassium 4.3 mmol/L (3.4-5.1); Sodium 135 mmol/L (137-145); Total Protein 6.7 g/dL (6.3-8.2)
[2024-08-24 20:24] LABS: Culture Indicated Urine Cult Not Indicated
--- NOTE | 2024-08-24 20:38 | DI.CT.S_ITS ---
PROCEDURE: CT ABDOMEN PELVIS W CON INDICATIONS: right flank pain TECHNIQUE: After the administration of intravenous contrast, axial sections acquired from the lung bases to the pubic symphysis. Coronal and sagittal reformats were performed. For radiation dose reduction, the following was used: automated exposure control, adjustment of mA and/or kV according to patient size. COMPARISON: None. FINDINGS: Image quality: Diagnostic. Lower Chest: No significant findings. ABDOMEN: Liver: Moderate to severe steatosis. Edge blunting with smooth contour. Gallbladder: No radiopaque gallstones or wall thickening. Biliary ducts: No biliary dilation. Pancreas: No ductal dilation. Spleen: Size is within normal limits. Adrenal Glands: No adrenal nodules. Kidneys and Ureters: No hydronephrosis. No solid mass. No complex renal cystic lesion which requires follow up. Stomach and Bowel: Normal colonic caliber, without significant wall thickening. Normal appendix. Colonic diverticulosis without evidence of diverticulitis. Peritoneum: No abnormal intraperitoneal fluid. No free air. Ventral Wall: No significant ventral hernia. Abdominal Nodes: No retroperitoneal or mesenteric adenopathy by size criteria. Vessels: Aorta and inferior vena cava are normal in size. PELVIS: Pelvic Organs: Moderate right testicular hydrocele. Prostatectomy. Bladder: No bladder wall thickening, accounting for underdistention. Pelvic Nodes: No enlarged lymph nodes. Miscellaneous: Small inguinal hernias containing fat. Bones: No aggressive osseous abnormality. Degenerative disc disease of the lumbar spine. Grade 1 anterolisthesis of L4 on L5 due to facet arthrosis. Broad-based disc bulge at L5-S1 without significant spinal canal narrowing. Moderate spinal canal narrowing at L3-4. IMPRESSION: No hydronephrosis or nephrolithiasis. Moderate right-sided testicular hydrocele. Multilevel degenerative disc disease and facet arthrosis. As result, there is moderate spinal canal narrowing at L3-4. Moderate to severe hepatic steatosis. Other ancillary findings as above. Dictated by: Edgar Quintanilla M.D. on 08/24/2024 at 21:17 Approved by: Edgar Quintanilla M.D. on 08/24/2024 at 21:20
== END 2024-08-24 22:04 | disposition home or self-care (01) ==
PROVIDERS: Emergency Provider Emergency Medicine; PCP Physician Assistant
DX: R10.9 Unspecified abdominal pain (principal); N43.3 Hydrocele, unspecified
CPT/HCPCS: 36415; 74177; 80053; 81001; 83690; 85025; 99284; Q9967

== ENCOUNTER → 2025-01-02 10:52 | Outpatient (CLI) | payer MEDICARE, SELFPAY ==
--- NOTE | 2025-01-02 10:55 | DI.RAD.S_ITS ---
PROCEDURE: XR SHOULDER RT MIN 2V INDICATIONS: CHRONIC RT SHOULDER PAIN TECHNIQUE: Three views of the shoulder were acquired. COMPARISON: None. FINDINGS: Bones: Normal mineralization. No acute fracture, dislocation, or separation. Mild to moderate glenohumeral joint space loss with moderate marginal spurring, subcortical cystic changes and mild glenoid sclerosis. Mild inferior spurring at the AC joint. Trace chondrocalcinosis visible over the humeral head. Faint ossifications projecting superior to the glenohumeral joint. The visible ribs are intact. Soft tissues: No suspicious soft tissue calcifications. The visible lung is normal IMPRESSION: Degenerative changes as described above, most significant at the glenohumeral joint. Subtle humeral head chondrocalcinosis. Dictated by: Roseann Trujillo M.D. on 01/02/2025 at 11:56 Approved by: Roseann Trujillo M.D. on 01/02/2025 at 11:57
== END ==
PROVIDERS: PCP Family Medicine; Referring Provider Family Medicine; Visit Provider Family Medicine
DX: M25.511 Pain in right shoulder (principal); G89.29 Other chronic pain; M11.211 Other chondrocalcinosis, right shoulder
CPT/HCPCS: 73030